=== PATIENT | male | born 1950 | race Caucasian/White ===

== ENCOUNTER → 2020-09-14 | Day surgery (SDC) | payer MEDICARE ==
[~2020-09-14] MED LIST: FLU VACC QS2020-21(65YR UP)/PF 240 MCG/0.7 ML SYRINGE IM ONE; Sodium Bicarbonate 2.5 MEQ/5 ML VIAL ONE
== END ==
LOC: CSHULT 13:23
PROVIDERS: ATTEND Internal Medicine Hematology & Oncology
DX: R18.8 Other ascites (principal); C25.1 Malignant neoplasm of body of pancreas; C18.2 Malignant neoplasm of ascending colon
CPT/HCPCS: 49083